=== PATIENT | female | born 1975 | race Caucasian/White ===

== ENCOUNTER 2016-06-07 16:49 | Inpatient (IN) | payer OTHER ==
[~2016-06-07] VITALS: Ht 172.7 cm; Wt 74.5 kg
--- NOTE | ~2016-06-07 | O ---
[place], [place] OPERATIVE NOTE NAME: [facility]IA [facility]ATORRE [facility] [id number] UNIT #: [id number] ROOM: 516 DOCTOR: KYREE LAMA MD BIRTHDATE: [birth year] DOS: GASTROENDOSCOPIC REPORT A 40-year-old who has presented with a chief complaint of hematemesis, red matters yesterday and at the time of admission and she continues with dyspepsia. PROCEDURE: Today's procedure part of investigation is panendoscopy plus biopsy plus photographic series. PREMEDICATION: Versed and Diprivan. SCOPE: Olympus forward-viewing gastroscope Q10 video. REPORT: After putting the patient in the left lateral position and after application of lubricant to the scope, the scope was introduced; thereafter, under direct visualization, advanced through the length of the esophagus without difficulty. Small hiatal hernia was noticed. Gastric pouch was approached, multiple antral erosion and multiple linear ulcers in the antrum were identified. Photographed and biopsied from margin of 1 was obtained. Duodenal bulb, second and third part within normal limits. The patient was gradually extubated, tolerated the procedure well. IMPRESSION: Multiple antral linear ulcers and multiple erosions, small hiatal hernia. PLAN: Soft diet, Protonix 40 mg daily. The patient advised to abstain from excessive alcohol intake that she is involved as well as recreational drugs and nicotine. KYREE LAMA MD CM:OPRECORD:OPERATIVE NOTE [id number] KYREE LAMA MD 06/09/16 1239 interface
--- NOTE | ~2016-06-07 | PR ---
[place], [place] PROGRESS NOTE [facility] [id number] UNIT #: [id number] ROOM: 516 DOCTOR: RANDY LÓPEZ MD BIRTHDATE: [birth year] DOS: 06/09/2016 REASON FOR VISIT: SVT. HISTORY OF PRESENT ILLNESS: The patient is feeling better. Denies any chest pain or palpitations. This morning she had a brief SVT, and she was slightly symptomatic. Denies any nausea, vomiting. She was scheduled to have upper endoscopy today due to her significant peptic ulcer disease. No chest pain, shortness of breath. No dizziness. No orthopnea, no PND, no edema. REVIEW OF SYSTEMS: Review of the 8 systems negative except as mentioned above. RHYTHM STRIPS: The patient is in sinus rhythm with one brief SVT this morning and sinus bradycardia at night. PHYSICAL EXAMINATION: VITAL SIGNS: Blood pressure 106/52, pulse 72, respiratory rate 16. GENERAL: Alert, comfortable, in no acute distress. NEUROLOGIC: The patient is alert, oriented, no acute distress. HEENT: Pupils are round and equal. No jaundice. Tongue was moist and pharynx was clear. NECK: Supple, no distended neck veins, no carotid bruit. CHEST: Symmetrical, nontender. LUNGS: Clear to auscultation bilaterally. HEART: Regular rhythm. No S3, S4. ABDOMEN: Benign, nontender. Bowel sounds normal. EXTREMITIES: Showed no edema. Distal pulses palpable. SKIN: Warm and dry. No cyanosis, no clubbing. PSYCHIATRIC: The patient is alert, oriented. No focal neurologic deficit. IMPRESSION: 1. Paroxysmal supraventricular tachycardia. 2. Peptic ulcer disease. 3. History of anxiety and depression. 4. Continue low dose beta blockers. She did have some sinus bradycardia at night time, but the day time, her heart felt better. RECOMMENDATIONS: 1. She is going for upper endoscopy today and if she is stable from that standpoint, she can be discharged home from the cardiac standpoint since she would like to attend her grandmother's tomorrow, and we will schedule outpatient stress test and 2D echo. 2. However, if she is to stay in the hospital today, then we will do stress test and 2D echo tomorrow and outpatient event monitor. 3. Again, she was advised to take her low-dose beta juan and watch her blood pressure and heart rate. If symptomatic and also if she develops tachycardia, she is advised to attempt vagal maneuvers as well as attempt to cough, also take additional metoprolol 25 mg. If the symptoms are persistent then she was advised to go to the Emergency Room. [place], [place] PROGRESS NOTE NAME: GLORIA DELATORRE UNIT #: [id number] ROOM: 516 DOCTOR: RANDY LÓPEZ MD BIRTHDATE: [birth year] RANDY LÓPEZ MD CM:CASSANDRA 1456 RANDY LÓPEZ MD 06/10/16 0102 interface
--- NOTE | ~2016-06-07 | CON ---
[place], [place] REPORT OF CONSULTATION NAME: GLORIA DELATORRE [facility] #: [id number] UNIT #: [id number] ROOM: 516 DOCTOR: KYREE LAMA MD BIRTHDATE: [birth year] DOS: 06/08/2016 HISTORY OF PRESENT ILLNESS: A 40-year-old patient, who has presented with multiple medical issues among which are abdominal epigastric pain, change in bowel habits, history of peptic ulcer disease and emesis of reddish matter. White blood cell at the time of admission was 13 and H and H of 15 and 44. Her lactic acid was 2.9 and INR 1.0. Comprehensive metabolic panel: BUN and creatinine were 15 and 1.3. Electrolytes were balanced. Liver function tests were normal. Beta-hCG was less than 10. Chest x-ray with clear lungs. CBC differential within normal limits. The patient has a habit of drinking a fifth of whiskey, at least it is during the weekend. She is an aggressive nicotine consumer as well. PAST MEDICAL HISTORY: Associated with chronic back pain, anxiety, alcohol and drug dependency, suicidal attempt and nicotine dependency. PAST SURGICAL HISTORY: Tubal ligation. SOCIAL HISTORY: As identified above. FAMILY HISTORY: Noncontributory. ALLERGIES: TO SULFA. MEDICATIONS LIST: Cyclobenzaprine, alprazolam and sertraline. REVIEW OF SYSTEMS: HEENT: Denies double vision or blurred vision. RESPIRATORY: Denies shortness of breath. CARDIOVASCULAR: Denies chest pain. DIGESTIVE SYSTEM: Hematemesis, blood in the stool and black stool. PHYSICAL EXAMINATION: GENERAL: Nontoxic patient. HEENT: Head is normocephalic, nontraumatic. Mouth and buccal mucosa are benign. NECK: Supple, no thyromegaly. CHEST: Symmetric anatomy, equal expansion. No wheeze and no rhonchi. HEART: Normal sinus rhythm. No gallop and no murmur. ABDOMEN: Soft. No hepato-organomegaly. Bowel sounds present. No pulsatile mass. EXTREMITIES: No cyanosis and no pedal edema. NEUROLOGIC: Alert and oriented to time, place and person. LABS: Reviewed. RECORDS: Reviewed. IMPRESSION: Gastrointestinal bleed, hematemesis and leukocytosis initially. No acute drop in hemoglobin and hematocrit. Patient with heavy history of alcohol [place], [place] REPORT OF CONSULTATION NAME: GLORIA DELATORRE UNIT #: [id number] ROOM: 516 DOCTOR: DAINA SANZ,KYREE BIRTHDATE: [birth year] and nicotine dependency, history of suicidal attempt and ideation in the past. Slight elevation of troponin at 0.069. PLAN AND DISCUSSION: This patient may end up needing anticoagulation and since she has aggressive history of peptic ulcer disease, black stool and hematemesis, may need anticoagulation based on her cardiac issues of tachycardia history. May benefit from endoscopic assessment to ensure there is no culprit to be contraindicated in anticoagulation. EGD tomorrow. KYREE LAMA MD CM:CONSTR:REPORT OF CONSULTATION 1627 06/09/16 0021 interface
--- NOTE | ~2016-06-07 | CON ---
[place], [place] REPORT OF CONSULTATION [id number] UNIT #: [id number] ROOM: 516 DOCTOR: RANDY LÓPEZ MD BIRTHDATE: [birth year] DOS: 06/08/2016 CARDIOLOGY CONSULT CONSULTING PHYSICIAN: Delon Lucia DO REASON FOR CONSULTATION: Tachycardia. HISTORY OF PRESENT ILLNESS: The patient is a 40-year-old patient with history of palpitation for the past 2-3 years, anxiety, who came to the Emergency Room with palpitations. As per her, these palpitations have been going on for about 7-8 days and no dizziness or syncope. In the Emergency Room, she is found to have a narrow complex tachycardia and she was given adenosine and was converted to sinus rhythm. Apparently, she has no cardiac medications at home and a couple of years ago, she did have a 24-hour Holter monitor which was unremarkable per her. She denies any chest pain, edema or syncope. No headaches. No tingling, numbness or weakness. No blurred vision, no double vision. No nausea, vomiting, diarrhea. Usually, she takes Xanax to help her heart rate, but the recent episode was not relieved with Xanax. REVIEW OF SYSTEMS: Review of the 8 systems negative except as mentioned above. PAST MEDICAL HISTORY: 1. History of paroxysmal supraventricular tachycardia, details unknown. 2. History of anxiety. 3. History of chronic back pain. 4. History of alcohol use. PAST SURGICAL HISTORY: History of tubal ligation. SOCIAL HISTORY: The patient has history of tobacco smoking and also alcohol use, but does not use illicit drugs. FAMILY HISTORY: Mother has hypertension. Father medical history is not known to the patient. ALLERGIES: The patient is allergic to SULFA. HOME MEDICATIONS: Xanax, sertraline and cyclobenzaprine. PHYSICAL EXAMINATION: VITAL SIGNS: Blood pressure 116/52, pulse 78, respiratory rate of 14. GENERAL: Alert, comfortable, in no acute distress. HEENT: Pupils are round and equal. No jaundice. Tongue was moist and pharynx was clear. NECK: Supple, no distended neck veins, no carotid bruit. Thyroid not palpable. CHEST: Symmetrical, nontender. LUNGS: Clear to auscultation bilaterally. HEART: Regular rhythm, no S3, no palpable thrills. ABDOMEN: Benign, nontender. Bowel sounds normal. [place], [place] REPORT OF CONSULTATION NAME: GLORIA DELATORRE UNIT #: [id number] ROOM: 516 DOCTOR: MARIBEL SANZ,RANDY BIRTHDATE: [birth year] EXTREMITIES: Showed no edema. Distal pulses are palpable. SKIN: Warm and dry. No cyanosis, no clubbing. NEUROLOGIC: The patient is alert, oriented. No focal neurologic deficit. RECTAL: Deferred. GENITOURINARY: Deferred. MUSCULOSKELETAL: No joint tenderness or swelling. REVIEW OF THE DIAGNOSTIC TESTS: No ____ EKG was found. Rhythm strips showed currently in sinus rhythm and in the Emergency Room, she was noted to have a narrow complex ventricular tachycardia, rates around 200 and converted to sinus rhythm with adenosine. Her CBC, chemistry, labs reviewed. Her cardiac troponins are 0.10, the current one and the first was 0.02. Total CPK was 112 and MB was 0.8. IMPRESSION: 1. Supraventricular tachycardia, responded to adenosine with history of . 2. Borderline elevation of troponin due to tachyarrhythmias. The patient denies any chest pain and there are no ischemic changes on her rhythm strips. 3. Acute renal failure. 4. Tobacco use. 5. Alcohol use. 6. History of anxiety. RECOMMENDATIONS: 1. She denies any chest pain or palpitations. She is allowed to go home today or tomorrow due to her grandmother's . 2. I would recommend exercise treadmill stress test as well as 2D echo and since this test cannot be done during the weekend, the earliest we can do this test should be Friday. Also, I would recommend outpatient event monitor. If she stays in the hospital, we will get the stress test and 2D echo Friday. If she is discharged today or tomorrow, then we will schedule this test as outpatient and I will start low dose beta blockers, metoprolol 25 mg once daily and also as needed if she becomes tachycardic at home. 3. She was advised to check her blood pressure if she gets dizzy and lightheaded, and especially can be discharged home from the cardiac standpoint during the weekend due to her request and we will schedule the above recommendations as outpatient. 4. The patient does not consume any caffeinated beverages and again this was discussed to avoid caffeinated beverages and also the patient advised to quit smoking and drinking. [place], [place] REPORT OF CONSULTATION NAME: GLORIA DELATORRE UNIT #: [id number] ROOM: [facility] DOCTOR: MARIBEL SANZ,RANDY BIRTHDATE: [birth year] RANDY LÓPEZ MD CM:CONSTR:REPORT OF CONSULTATION 1613 06/10/16 1448 interface
[~2016-06-07 16:49] MED LIST: AMOXIL500 MG PO; BRIN10TA PO; CEFUROXIME AXE250 MG PO; CELEXA10 MG PO; CIPRO500 MG PO; CYCLOBENZAPRINE10 MG PO; DEXILANT30 MG PO; DIFLUCAN150 MG PO; NITROFURANTOIN100 M9 PO; PREDNISONE20 MG PO; ROBITUSSIN AC 110 ML PO; SERTRALINE HYDR50 MG PO; XANAX0.5 MG PO; ZOLOFT50 MG PO; ZYRTEC10 MG PO
[2016-06-07 17:18] LABS: BASO # 0.1 10*3/uL (0.0-0.1); BASO % 0.5 % (0.0-1.0); EOS % 0.3 % (1.0-4.0); HEMATOCRIT 44.8 % (37.0-47.0); HEMOGLOBIN 15.3 g/dl (12.0-16.0); LYMPH # 2.5 10*3/uL (1.3-4.4); LYMPH % 19.2 % (27.0-41.0); MEAN CELL VOLUME 88.5 fl (81.0-99.0); MEAN CORPUSCULAR HGB 30.2 pg (27.0-31.0); MEAN CORPUSCULAR HGB CONC 34.2 g/dl (33.0-37.0); MEAN PLATELET VOLUME 10.4 fl (9.6-12.3); MONO % 7.9 % (3.0-9.0); NEUT # 9.3 10*3/uL (2.3-7.9); NEUT % 71.8 % (47.0-73.0); PLATELET COUNT AUTOMATED 265 10*3/uL (130-400); RED BLOOD COUNT 5.06 10*6/uL (4.10-5.10); RED CELL DISTRI WIDTH 13.2 % (0-14.5)
[2016-06-07 17:27] LABS: PROTHROMBIN TIME 10.4 SECONDS (9.0-12.4)
[2016-06-07 17:36] LABS: ALBUMIN 3.9 gm/dl (3.1-4.5); ALKALINE PHOSPHATASE 75 U/L (45-117); BILIRUBIN, TOTAL 0.8 mg/dl (0.2-1.0); BUN 15 mg/dl (7-24); CARBON DIOXIDE 20 mmol/L (21-32); CHLORIDE 105 mmol/L (98-107); CKMB 0.8 ng/ml (0.5-3.6); CPK 112 U/L (26-192); EST GLOM FILT AFRICAN AMERICAN 51 ml/min; GLUCOSE 146 mg/dL (65-99); MAGNESIUM 1.7 mg/dL (1.5-2.1); POTASSIUM 4.1 mmol/L (3.5-5.1); SGOT/AST 21 IU/L (3-35); SGPT/ALT 19 U/L (12-78); SODIUM 138 mmol/L (136-145); TOTAL PROTEIN 7.9 gm/dL (6.4-8.2); TROPONIN I 0.022 ng/ml (<0.045)
[2016-06-07 17:38] LABS: C-REACTIVE PROTEIN < 0.29 MG/DL (0-0.3)
[2016-06-07 19:15] LABS: LA>2 REFLEX 2 HR DRAW NOW
[2016-06-07] MEDS ORDERED: SERTRALINE HYD100 MG PO (20:33)
[2016-06-08 06:34] LABS: BASO % 0.3 % (0.0-1.0); EOS # 0.1 10*3/uL (0.0-0.4); EOS % 1.4 % (1.0-4.0); LYMPH % 35.3 % (27.0-41.0); MEAN CELL VOLUME 88.7 fl (81.0-99.0); MEAN CORPUSCULAR HGB CONC 33.9 g/dl (33.0-37.0); MEAN PLATELET VOLUME 10.4 fl (9.6-12.3); MONO # 0.6 10*3/uL (0.1-1.0); MONO % 11.2 % (3.0-9.0); NEUT % 51.6 % (47.0-73.0); RED BLOOD COUNT 4.16 10*6/uL (4.10-5.10); WHITE BLOOD COUNT 5.7 10*3/uL (4.8-10.8)
[2016-06-08 06:39] LABS: HEMATOCRIT 36.9 % (37.0-47.0); HEMOGLOBIN 12.5 g/dl (12.0-16.0); PLATELET COUNT AUTOMATED 179 10*3/uL (130-400)
[2016-06-08 06:55] LABS: HEMOGLOBIN A1c 4.9 % (4.8-5.6)
[2016-06-08 07:10] LABS: BUN 13 mg/dl (7-24); CARBON DIOXIDE 23 mmol/L (21-32); CHLORIDE 107 mmol/L (98-107); CHOLESTEROL 108 mg/dL (<200); EST GLOM FILT AFRICAN AMERICAN > 60 ml/min; GLUCOSE 87 mg/dL (65-99); HDL CHOLESTEROL 83 mg/dl (40-60); LDL CHOLESTEROL 9 mg/dL (9-159); MAGNESIUM 2.1 mg/dL (1.5-2.1); PHOSPHOROUS 3.1 mg/dL (2.5-4.9); POTASSIUM 3.5 mmol/L (3.5-5.1); SODIUM 140 mmol/L (136-145); TRIGLYCERIDES 81 mg/dl (<150); VLDL CHOLESTEROL 16 mg/dL (6-40)
[2016-06-08 07:34] LABS: VITAMIN D, 25-HYDROXY 11.9 ng/mL (30-100)
[2016-06-08 07:35] LABS: FOLIC ACID 5.67 ng/mL (>5.38)
[2016-06-09 06:16] LABS: BASO % 0.5 % (0.0-1.0); EOS # 0.1 10*3/uL (0.0-0.4); EOS % 1.5 % (1.0-4.0); HEMATOCRIT 39.4 % (37.0-47.0); HEMOGLOBIN 13.4 g/dl (12.0-16.0); LYMPH # 2.3 10*3/uL (1.3-4.4); LYMPH % 37.6 % (27.0-41.0); MEAN CELL VOLUME 88.5 fl (81.0-99.0); MEAN CORPUSCULAR HGB 30.1 pg (27.0-31.0); MEAN PLATELET VOLUME 10.4 fl (9.6-12.3); MONO # 0.5 10*3/uL (0.1-1.0); NEUT # 3.2 10*3/uL (2.3-7.9); NEUT % 52.2 % (47.0-73.0); PLATELET COUNT AUTOMATED 177 10*3/uL (130-400); RED BLOOD COUNT 4.45 10*6/uL (4.10-5.10); RED CELL DISTRI WIDTH 12.8 % (0-14.5); WHITE BLOOD COUNT 6.1 10*3/uL (4.8-10.8)
[2016-06-09] MEDS ORDERED: PROTONIX40 MG PO (11:53)
[2016-06-09] MEDS ORDERED: CARAFATE1 G1 PO (11:53)
[2016-06-09] MEDS ORDERED: B12100 MC1 PO (11:53)
[2016-06-09] MEDS ORDERED: D-1000 185 MG-11 TAB PO (11:53)
[2016-06-09] MEDS ORDERED: METOPROLOL SUCC25 M2 PO (11:53)
== END 2016-06-09 13:21 | disposition home or self-care (01) | DRG 377 ==
LOC: ED 16:49 → EDHOLD 18:37 → 5E 18:45
PROVIDERS: Emergency Medicine; Internal Medicine; Internal Medicine Hospice and Palliative Medicine
PROC: 0DB68ZX Excision of Stomach, Via Natural or Artificial Opening Endoscopic, Diagnostic (ICD-10-PCS; principal; 2016-06-09)
DX: K92.2 Gastrointestinal hemorrhage, unspecified (principal); N17.0 Acute kidney failure with tubular necrosis; I47.1 Supraventricular tachycardia; R65.10 Systemic inflammatory response syndrome (SIRS) of non-infectious origin without acute organ dysfunction; E87.2 Acidosis; K92.0 Hematemesis; K25.3 Acute gastric ulcer without hemorrhage or perforation; F10.10 Alcohol abuse, uncomplicated; F41.9 Anxiety disorder, unspecified; F17.210 Nicotine dependence, cigarettes, uncomplicated; F32.9 Major depressive disorder, single episode, unspecified; R06.82 Tachypnea, not elsewhere classified; D72.825 Bandemia; R73.9 Hyperglycemia, unspecified; K44.9 Diaphragmatic hernia without obstruction or gangrene; Z98.51 Tubal ligation status; Z82.49 Family history of ischemic heart disease and other diseases of the circulatory system; Z79.899 Other long term (current) drug therapy; Z71.6 Tobacco abuse counseling

== ENCOUNTER → 2016-06-26 | Outpatient (CLI) | payer OTHER ==
[~2016-06-26] MED LIST changes: +B12100 MC1 PO; +CARAFATE1 G1 PO; +CLARITIN10 MG PO; +D-1000 185 MG-11 TAB PO; +METOPROLOL SUCC25 M2 PO; +PROTONIX40 MG PO; +SERTRALINE HYD100 MG PO
== END | disposition home or self-care (01) ==
LOC: CARD 07:30
DX: I47.1 Supraventricular tachycardia (principal); I34.0 Nonrheumatic mitral (valve) insufficiency; I07.1 Rheumatic tricuspid insufficiency; R00.2 Palpitations; R94.31 Abnormal electrocardiogram [ECG] [EKG]

== ENCOUNTER 2016-08-16 21:51 | Inpatient (IN) | payer OTHER ==
[~2016-08-16] VITALS: Ht 172.7 cm; Wt 71.4 kg
--- NOTE | ~2016-08-16 | EKG ---
[place], [place] ELECTROCARDIOGRAM REPORT NAME: GLORIA DELATORRE UNIT #: [id number] ROOM: 403 DOCTOR: DIONNE FERRER MD BIRTHDATE: [birth year] DOS: TIME: 2222 hours. FINDINGS: 1. Normal sinus rhythm at 99 beats per minute. 2. The tracing is normal. 3. No previous tracing is available for comparison. DIONNE FERRER MD CM:EKGRPT:ELECTROCARDIOGRAM REPORT [id number] 1315 DIONNE FERRER MD
--- NOTE | ~2016-08-16 | CON ---
[place], [place] REPORT OF CONSULTATION [id number] UNIT #: [id number] ROOM: 403 DOCTOR: DIONNE FERRER MD BIRTHDATE: [birth year] DOS: 08/17/2016 HISTORY OF PRESENT ILLNESS: This is a 40-year-old -[place] woman who has had palpitation and supraventricular tachycardia that was documented during her last visit in this hospital when she was noted to have a heart rate of 200 beats per minute, intravenous adenosine actually restored normal sinus rhythm. She has an episode almost on a monthly basis, and it is accompanied by shortness of breath, chest tightness, lightheadedness, sometimes floaters in front of the eyes and also weakness and lethargy for many hours afterwards. These episodes started about 3 years ago and have not let up. She never passed out and nothing precipitates palpitations. She had a similar episode yesterday and by the time she came to the Emergency Department, symptoms had abated, and she was found to be in normal sinus rhythm. She is a very active lady who does not have any exertional chest pain, breathing difficulty, palpitations, orthopnea, or swelling of the lower extremities. PAST MEDICAL HISTORY: Anxiety, chronic back pain, depression and drug overdose, suicide attempt, but she does not use alcoholic beverages or any illicit drugs and does not smoke now. SURGICAL HISTORY: Includes tubal ligation. She has never had diabetes mellitus, essential hypertension, seizure disorder or stroke. MEDICATIONS: Metoprolol 25 mg daily once a day, alprazolam 0.5 mg p.r.n., cyclobenzaprine 10 mg at bedtime, sertraline 100 mg daily. PHYSICAL EXAMINATION: GENERAL: Reveals a patient who is a very pleasant, alert, and oriented. She is tall and slim her complexion is fine. There is no thyromegaly or finger clubbing. VITAL SIGNS: Pulse is irregular at 56 beats per minute, blood pressure 121/62. NECK: JVP is normal. AJR is negative. Carotid upstroke is normal. There is no carotid bruit. HEART: There is no cardiomegaly. No murmurs are present. There is no rub. Excellent pedal pulses and no edema in the lower extremities. LUNGS: She is not tachypneic. Lungs are clear to percussion and auscultation. ABDOMEN: Normal. LABORATORY DATA: An ECG done in the ER demonstrated normal sinus rhythm at 99 beats per minute and normal pattern. Labs are unremarkable. IMPRESSION: This patient has supraventricular tachycardia that is occurring frequently. Beta juan has not helped. Dr. Rios has already made arrangement for her to see Dr. Powers, an cannon crewmember to offer definitive treatment. From cardiac standpoint, she may be discharged home. [place], [place] REPORT OF CONSULTATION NAME: GLORIA DELATORRE UNIT #: [id number] ROOM: 403 DOCTOR: DIONNE FERRER MD BIRTHDATE: [birth year] I thank you for this consult. DIONNE FERRER MD CM:CONSTR:REPORT OF CONSULTATION 0813 08/18/16 0015 interface
[2016-08-16 21:57] VITALS: BP 147/80
[2016-08-16 22:35] LABS: BASO # 0.1 10*3/uL (0.0-0.1); BASO % 0.8 % (0.0-1.0); EOS # 0.1 10*3/uL (0.0-0.4); EOS % 1.4 % (1.0-4.0); HEMATOCRIT 42.1 % (37.0-47.0); HEMOGLOBIN 14.3 g/dl (12.0-16.0); LYMPH # 1.7 10*3/uL (1.3-4.4); LYMPH % 21.3 % (27.0-41.0); MEAN CELL VOLUME 89.4 fl (81.0-99.0); MEAN CORPUSCULAR HGB 30.4 pg (27.0-31.0); MEAN PLATELET VOLUME 9.7 fl (9.6-12.3); MONO # 0.7 10*3/uL (0.1-1.0); MONO % 8.9 % (3.0-9.0); NEUT # 5.3 10*3/uL (2.3-7.9); NEUT % 67.5 % (47.0-73.0); PLATELET COUNT AUTOMATED 253 10*3/uL (130-400); RED BLOOD COUNT 4.71 10*6/uL (4.10-5.10); RED CELL DISTRI WIDTH 13.4 % (0-14.5); WHITE BLOOD COUNT 7.9 10*3/uL (4.8-10.8)
[2016-08-16 22:45] LABS: PROTHROMBIN TIME 10.3 SECONDS (9.0-12.4)
[2016-08-16 22:54] LABS: BUN 15 mg/dl (7-24); CARBON DIOXIDE 24 mmol/L (21-32); CHLORIDE 103 mmol/L (98-107); CKMB 0.7 ng/ml (0.5-3.6); CPK 172 U/L (26-192); EST GLOM FILT AFRICAN AMERICAN > 60 ml/min; GLUCOSE 101 mg/dL (65-99); POTASSIUM 3.7 mmol/L (3.5-5.1); SODIUM 136 mmol/L (136-145)
[2016-08-16 22:56] LABS: TROPONIN I < 0.015 ng/ml (<0.045)
[2016-08-16 23:01] VITALS: BP 122/77
[2016-08-16 23:54] VITALS: BP 118/52
[2016-08-17] VITALS (10 sets, daily range): BP systolic 106–130; BP diastolic 42–74
[2016-08-17] MEDS ORDERED: ZOLOFT100 MG PO (02:53)
[2016-08-17] MEDS ORDERED: PRILOSEC20 M1 PO (02:54)
[2016-08-17 03:29] LABS: CPK 139 U/L (26-192); TROPONIN I < 0.015 ng/ml (<0.045)
[2016-08-17 06:28] LABS: CKMB 0.7 ng/ml (0.5-3.6); CPK 136 U/L (26-192)
[2016-08-17 06:32] LABS: TROPONIN I < 0.015 ng/ml (<0.045)
[2016-08-17 07:27] LABS: BASO % 0.5 % (0.0-1.0); EOS # 0.1 10*3/uL (0.0-0.4); EOS % 1.9 % (1.0-4.0); HEMATOCRIT 36.9 % (37.0-47.0); HEMOGLOBIN 12.6 g/dl (12.0-16.0); LYMPH # 1.8 10*3/uL (1.3-4.4); MEAN CELL VOLUME 90.7 fl (81.0-99.0); MEAN CORPUSCULAR HGB CONC 34.1 g/dl (33.0-37.0); MEAN PLATELET VOLUME 10.5 fl (9.6-12.3); MONO # 0.7 10*3/uL (0.1-1.0); MONO % 11.3 % (3.0-9.0); NEUT # 3.6 10*3/uL (2.3-7.9); NEUT % 57.1 % (47.0-73.0); PLATELET COUNT AUTOMATED 218 10*3/uL (130-400); RED BLOOD COUNT 4.07 10*6/uL (4.10-5.10); RED CELL DISTRI WIDTH 13.8 % (0-14.5); WHITE BLOOD COUNT 6.3 10*3/uL (4.8-10.8)
[2016-08-17 07:34] LABS: BUN 15 mg/dl (7-24); CARBON DIOXIDE 26 mmol/L (21-32); CHLORIDE 108 mmol/L (98-107); EST GLOM FILT AFRICAN AMERICAN > 60 ml/min; GLUCOSE 80 mg/dL (65-99); POTASSIUM 3.7 mmol/L (3.5-5.1); SODIUM 143 mmol/L (136-145)
[2016-08-17 08:58] LABS: CKMB 0.8 ng/ml (0.5-3.6); CPK 135 U/L (26-192)
[2016-08-17 09:03] LABS: TROPONIN I < 0.015 ng/ml (<0.045)
== END 2016-08-17 15:00 | disposition home or self-care (01) | DRG 206 ==
LOC: ED 21:51 → EDHOLD 08-17 01:39 → 4E 08-17 01:48
PROVIDERS: Family Medicine; Internal Medicine; Internal Medicine Hospice and Palliative Medicine
DX: M94.0 Chondrocostal junction syndrome [Tietze] (principal); I47.1 Supraventricular tachycardia; F32.9 Major depressive disorder, single episode, unspecified; F41.1 Generalized anxiety disorder; K21.9 Gastro-esophageal reflux disease without esophagitis; F17.210 Nicotine dependence, cigarettes, uncomplicated; J30.2 Other seasonal allergic rhinitis; G89.29 Other chronic pain; M54.9 Dorsalgia, unspecified; Z71.6 Tobacco abuse counseling; Z98.51 Tubal ligation status; Z79.899 Other long term (current) drug therapy; Z82.49 Family history of ischemic heart disease and other diseases of the circulatory system; Z88.2 Allergy status to sulfonamides; I49.9 Cardiac arrhythmia, unspecified

== ENCOUNTER 2016-12-12 21:33 | Inpatient (IN) | payer OTHER ==
[~2016-12-12] VITALS: Ht 165.1 cm; Wt 76.4 kg
--- NOTE | ~2016-12-12 | EKG ---
[place], [place] ELECTROCARDIOGRAM REPORT NAME: GLORIA DELATORRE UNIT #: [id number] ROOM: [facility] DOCTOR: DIONNE FERRER MD BIRTHDATE: [birth year] DOS: 12/13/2016 TIME: 2157 hours. Atrial flutter with variable AV conduction. Ventricular rate is 144 beats per minute. Nonspecific T wave changes in chest leads. Abnormal ECG. No previous tracing is available for comparison. DIONNE FERRER MD CM:EKGRPT:ELECTROCARDIOGRAM REPORT [id number] 0929 DIONNE FERRER MD
--- NOTE | ~2016-12-12 | CON ---
[place], [place] REPORT OF CONSULTATION [id number] UNIT #: [id number] ROOM: 505 DOCTOR: DIONNE FERRER MD BIRTHDATE: [birth year] DOS: 12/13/2016 HISTORY OF PRESENT ILLNESS: The patient is a 41-year-old -[place] woman with history of atrial flutter. This has been present for many years now. Dr. Chi, an director of philanthropy, attempted to do radiofrequency ablation; however, according to patient, he was unable to trigger the flutter. She had been on flecainide 150 twice a day and this is to care of the palpitations and flutter; however, she developed bad headaches and now takes a lower dose. She was in this hospital in July with similar symptoms and also once earlier. She had an episode that started rather suddenly and she became dizzy and lightheaded. She did not pass out, in fact, she has never passed out with palpitations. She has not had any sweating, nausea or any breathing difficulty. She has no swelling of the lower extremities and generally does not have any exertional chest pain, breathing difficulty or orthopnea. She does not smoke nor does she drink alcoholic beverages. HOME MEDICATIONS: Include flecainide 150 mg half tablet daily, alprazolam 0.5 mg p.r.n. for anxiety, cyclobenzaprine 10 mg at night, loratadine 10 mg daily, sertraline 100 mg daily. PHYSICAL EXAMINATION: GENERAL: Reveals a tall, slim, healthy-looking young lady who is very comfortable. Her complexion is fine. She is not anemic, not jaundice. There is no thyromegaly or finger clubbing. Vital Signs: Pulse is regular at 76 beats per minute, blood pressure 115/68. NECK: Normal JVP. AJR is negative. There is no carotid bruit. HEART: There is no cardiomegaly. Auscultation does not reveal any murmurs or rubs and she has good pedal pulses. EXTREMITIES: There is no edema of the lower extremities. RESPIRATORY: She is not tachypneic. Lungs are clear to percussion and auscultation with excellent breath sounds. ABDOMEN: Normal bowel sounds. No bruit. There is no organomegaly or pulsatile mass. LABORATORY DATA: An ECG in the Emergency Department demonstrated classic flutter waves with 2:1 AV conduction producing a ventricular rate of 144 beats per minute and nonspecific T-wave changes. She had a stress test done here earlier this year, which showed no ischemia. IMPRESSION: This patient has recurrent atrial flutter and has never passed out, in the Emergency Department, adenosine failed and she was given atenolol intravenously to slow down the rate and eventually went to normal sinus rhythm. She is now in normal sinus rhythm, rate is pretty decent. RECOMMENDATIONS: She may be discharged home. I have asked her to take an extra 150 mg of flecainide once she develops palpitations and this may terminate the dysrhythmia. [place], [place] REPORT OF CONSULTATION NAME: GLORIA DELATORRE UNIT #: [id number] ROOM: [facility] DOCTOR: DIONNE FERRER MD BIRTHDATE: [birth year] No tests are required. I thank you for this consult. DIONNE FERRER MD CM:CONSTR:REPORT OF CONSULTATION 1440 12/16/16 0849 interface
[~2016-12-12 21:33] MED LIST changes: +PRILOSEC20 M1 PO; +ZOLOFT100 MG PO
[2016-12-12 22:14] VITALS: BP 140/85
[2016-12-12 22:14] LABS: BASO % 0.3 % (0.0-1.0); EOS % 0.4 % (1.0-4.0); HEMATOCRIT 43.1 % (37.0-47.0); HEMOGLOBIN 14.5 g/dl (12.0-16.0); LYMPH # 2.9 10*3/uL (1.3-4.4); MEAN CELL VOLUME 88.3 fl (81.0-99.0); MEAN CORPUSCULAR HGB 29.7 pg (27.0-31.0); MEAN CORPUSCULAR HGB CONC 33.6 g/dl (33.0-37.0); MEAN PLATELET VOLUME 10.2 fl (9.6-12.3); MONO # 0.5 10*3/uL (0.1-1.0); MONO % 5.2 % (3.0-9.0); NEUT # 5.8 10*3/uL (2.3-7.9); NEUT % 62.8 % (47.0-73.0); PLATELET COUNT AUTOMATED 242 10*3/uL (130-400); RED BLOOD COUNT 4.88 10*6/uL (4.10-5.10); WHITE BLOOD COUNT 9.2 10*3/uL (4.8-10.8)
--- NOTE | 2016-12-12 22:15 | NUR ---
6 MG ADENOCARD GIVEN, NO CHANGE IN HEART RATE/RHYTHM. 12 MG ADENOCARD GIVEN WITHOUT CHANGE. ORDERS FOR CARDIZEM TO BE PUT IN. PT STABLE.
[2016-12-12 22:26] LABS: ACT PARTIAL THROMBO TIME 25.6 SECONDS (20.8-31.5); INTERNATIONAL NORM RATIO 0.9 (2.0-3.5)
[2016-12-12 22:29] LABS: ALBUMIN 4.1 gm/dl (3.1-4.5); ALKALINE PHOSPHATASE 95 U/L (45-117); BUN 7 mg/dl (7-24); CHLORIDE 107 mmol/L (98-107); POTASSIUM 3.9 mmol/L (3.5-5.1); SGOT/AST 32 IU/L (3-35); SGPT/ALT 37 U/L (12-78); SODIUM 137 mmol/L (136-145); TOTAL PROTEIN 8.6 gm/dL (6.4-8.2)
[2016-12-12 22:30] LABS: TROPONIN I < 0.015 ng/ml (<0.045)
[2016-12-12 22:32] VITALS: BP 109/81
[2016-12-12 22:53] VITALS: BP 116/86
--- NOTE | 2016-12-12 22:53 | NUR ---
CARDIZEM DRIP INCREASED TO 10MG. PT REMAINS STABLE.
[2016-12-12 23:16] VITALS: BP 110/80
--- NOTE | 2016-12-12 23:18 | NUR ---
CARDIZEM INCREASED TO [address] FALK.
[2016-12-12 23:40] VITALS: BP 120/80
--- NOTE | 2016-12-12 23:48 | NUR ---
CARDIZEM DISCONTINUED. IV LOPRESSOR GIVEN.
[2016-12-12 23:52] VITALS: BP 112/65
[2016-12-13] VITALS (25 sets, daily range): BP systolic 86–115; BP diastolic 44–79
--- NOTE | 2016-12-13 02:12 | NUR ---
DR. LINK IN ER AND IS AWARE OF PATIENT'S BLOOD PRESSURE. WILL CONTINUE TO MONITOR. PATIENT HAS CALL LIGHT WITHIN REACH.
--- NOTE | 2016-12-13 03:01 | NUR ---
RESIDENT NOTIFIED THAT PATIENT'S HEART RATE CONVERTED TO NORMAL SINUS RHYTHM AT A RATE OF 70. PATIENT RESTING QUIETLY IN BED WITH EYES CLOSED. RESPIRATIONS EASY AND REGULAR. CALL LIGHT WITHIN REACH.
[2016-12-13 04:25] LABS: BASO % 0.3 % (0.0-1.0); EOS # 0.1 10*3/uL (0.0-0.4); EOS % 1.3 % (1.0-4.0); HEMATOCRIT 42.1 % (37.0-47.0); HEMOGLOBIN 14.2 g/dl (12.0-16.0); LYMPH # 3.4 10*3/uL (1.3-4.4); LYMPH % 35.5 % (27.0-41.0); MEAN CELL VOLUME 89.6 fl (81.0-99.0); MEAN CORPUSCULAR HGB 30.2 pg (27.0-31.0); MEAN CORPUSCULAR HGB CONC 33.7 g/dl (33.0-37.0); MONO # 0.5 10*3/uL (0.1-1.0); NEUT # 5.6 10*3/uL (2.3-7.9); NEUT % 57.7 % (47.0-73.0); PLATELET COUNT AUTOMATED 252 10*3/uL (130-400); WHITE BLOOD COUNT 9.6 10*3/uL (4.8-10.8)
[2016-12-13 04:36] LABS: BUN 10 mg/dl (7-24); CHLORIDE 106 mmol/L (98-107); CREATININE 0.91 mg/dL (0.55-1.02); POTASSIUM 3.9 mmol/L (3.5-5.1); SODIUM 139 mmol/L (136-145)
[2016-12-13 04:41] LABS: FREE T4 0.99 ng/dl (0.76-1.46); PHOSPHOROUS 3.6 mg/dL (2.5-4.9)
--- NOTE | 2016-12-13 05:13 | NUR ---
HEPARIN DRIP DECREASED BY 3UNITS/KG/HR BASED OFF HEPARIN PROTOCOL. HEPARIN DRIP ON HOLD FOR 1 HOUR PER POLICY. WILL CONTINUE TO MONITOR.
--- NOTE | 2016-12-13 07:08 | NUR ---
REPORT RECEIVED AT 0710 FROM RODRI LOPEZ. THIS PT IS SLEEPING,HER COLOR IS PINK.SKIN W/D,RESPIRATIONS ARE NON-LABORED. HEPARIN DRIP IS INFUSING,IV SITE APPEARS ASYMPTOMATIC. SHE WILL BE ADMITTED,WAITING FOR BED PLACEMENT. VS ARE STABLE AT THIS TIME. ROSA LOPEZ
--- NOTE | 2016-12-13 09:23 | NUR ---
PT IS AWAKE AND ALERT NOW. WILL BE ADMITTED,REPORT TO BE CALLED AT THIS TIME. PT HAS NO CO DISCOMFORT,NO DISTRESS NOTED. ROSA LOPEZ
--- NOTE | 2016-12-13 09:50 | NUR ---
A 41, admitted to , under the services of LLUVIA Maxwell DO with a diagnosis of AFLUTTER. Chief complaint is AFLUTTER. Patient arrived via bed from ER. Monitor applied. Initial assessment completed. Vital signs taken and recorded. LLUVIA MAXWELL DO notified of admission to the unit. Orders received. See assessment for past medical history, medications and allergies. Patient and/or family oriented to unit. [facility] EDU visitation policy reviewed. Clothing/patient valuable form completed. BRIANDA QUINONES
[2016-12-13] MEDS ORDERED: FLECAINIDE ACE150 M1 PO (10:02)
--- NOTE | 2016-12-13 11:04 | NUR ---
NOTIFIED OF CONSULT
--- NOTE | 2016-12-13 15:35 | NUR ---
IN TO SEE PT, PER PT CAN BE DISCHARGED HOME ON HIS STANDPOINT
[2016-12-13] MEDS ORDERED: VITAMIN D-32000 UNIT PO (17:15)
--- NOTE | 2016-12-13 17:46 | NUR ---
Discharge instructions reviewed with patient/family. Patient receptive and verbalizes understanding. Follow-up care arranged. Written instructions given to patient/family. BRIANDA QUINONES
== END 2016-12-13 17:46 | disposition home or self-care (01) | DRG 310 ==
LOC: ED 21:33 → 5E 12-13 00:03 → EDHOLD 12-13 00:03 → 5E 12-13 09:14
PROVIDERS: Internal Medicine; Student in an Organized Health Care Education/Training Program; ADMIT Internal Medicine
DX: I48.92 Unspecified atrial flutter (principal); E83.51 Hypocalcemia; F17.210 Nicotine dependence, cigarettes, uncomplicated; I49.3 Ventricular premature depolarization; F41.1 Generalized anxiety disorder; K21.9 Gastro-esophageal reflux disease without esophagitis; F32.9 Major depressive disorder, single episode, unspecified; M54.5 Low back pain; G89.29 Other chronic pain; I47.1 Supraventricular tachycardia; Z98.51 Tubal ligation status; Z82.49 Family history of ischemic heart disease and other diseases of the circulatory system; Z88.2 Allergy status to sulfonamides; Z79.899 Other long term (current) drug therapy

== ENCOUNTER 2017-02-20 18:04 | Emergency (ER) | payer OTHER ==
[~2017-02-20] VITALS: Ht 172.7 cm; Wt 72.6 kg
[~2017-02-20 18:04] MED LIST changes: +FLECAINIDE ACE150 M1 PO; +VITAMIN D-32000 UNIT PO
[2017-02-20] MEDS ORDERED: NAPROSYN500 MG PO (18:44)
[2017-02-20] MEDS ORDERED: CLINDAMYCIN HC300 MG PO (18:44)
== END 2017-02-20 18:49 | disposition home or self-care (01) ==
LOC: ED 18:04
DX: K02.9 Dental caries, unspecified (principal); F41.9 Anxiety disorder, unspecified; G89.29 Other chronic pain; K21.9 Gastro-esophageal reflux disease without esophagitis; F32.9 Major depressive disorder, single episode, unspecified; F17.210 Nicotine dependence, cigarettes, uncomplicated; F10.10 Alcohol abuse, uncomplicated; Z88.2 Allergy status to sulfonamides; Z98.51 Tubal ligation status; Z79.899 Other long term (current) drug therapy

== ENCOUNTER 2017-05-23 12:00 | Emergency (ER) | payer OTHER ==
[~2017-05-23] VITALS: Ht 172.7 cm; Wt 72.6 kg
[~2017-05-23 12:00] MED LIST changes: +CLINDAMYCIN HC300 MG PO; +NAPROSYN500 MG PO
[2017-05-23] MEDS ORDERED: NAPROSYN500 MG PO (12:26)
== END 2017-05-23 13:57 | disposition home or self-care (01) ==
LOC: ED 12:00
DX: R07.81 Pleurodynia (principal); R03.0 Elevated blood-pressure reading, without diagnosis of hypertension; F17.200 Nicotine dependence, unspecified, uncomplicated; I48.92 Unspecified atrial flutter; G89.29 Other chronic pain; K21.9 Gastro-esophageal reflux disease without esophagitis; Z79.899 Other long term (current) drug therapy; Z98.51 Tubal ligation status; Z88.2 Allergy status to sulfonamides; X50.1XXA Overexertion from prolonged static or awkward postures, initial encounter; Y93.89 Activity, other specified; Y92.89 Other specified places as the place of occurrence of the external cause; Y99.9 Unspecified external cause status

== ENCOUNTER 2017-07-28 16:14 | Emergency (ER) | payer OTHER ==
[~2017-07-28] VITALS: Ht 172.7 cm; Wt 72.6 kg
[2017-07-28] MEDS ORDERED: ANAPROX DS550 MG PO (18:09)
== END 2017-07-28 18:53 | disposition home or self-care (01) ==
LOC: ED 16:14
DX: S92.511A Displaced fracture of proximal phalanx of right lesser toe(s), initial encounter for closed fracture (principal); F17.200 Nicotine dependence, unspecified, uncomplicated; Z98.51 Tubal ligation status; Z88.2 Allergy status to sulfonamides; Z79.899 Other long term (current) drug therapy; W17.2XXA Fall into hole, initial encounter; Y93.89 Activity, other specified; Y92.89 Other specified places as the place of occurrence of the external cause; Y99.9 Unspecified external cause status

== ENCOUNTER 2019-04-02 17:26 | Emergency (ER) | payer OTHER ==
[~2019-04-02] VITALS: Ht 172.7 cm; Wt 68.0 kg
[~2019-04-02 17:26] MED LIST changes: +ANAPROX DS550 MG PO
[2019-04-02] MEDS ORDERED: IBUPROFEN600 MG PO (19:50)
[2019-04-02] MEDS ORDERED: TESSALON PERLE100 M1 PO (19:50)
== END 2019-04-02 20:00 | disposition home or self-care (01) ==
LOC: ED 17:26
DX: B34.9 Viral infection, unspecified (principal); G89.29 Other chronic pain; F17.200 Nicotine dependence, unspecified, uncomplicated; Z88.2 Allergy status to sulfonamides; Z79.899 Other long term (current) drug therapy

== ENCOUNTER 2019-04-18 15:28 | Emergency (ER) | payer OTHER ==
[~2019-04-18] VITALS: Ht 172.7 cm; Wt 68.0 kg
[~2019-04-18 15:28] MED LIST changes: +IBUPROFEN600 MG PO; +TESSALON PERLE100 M1 PO
[2019-04-18 16:22] LABS: BASO % 0.4 % (0.0-1.0); EOS # 0.2 10*3/uL (0.0-0.4); EOS % 2.4 % (1.0-4.0); HEMATOCRIT 37.5 % (37.0-47.0); HEMOGLOBIN 12.3 g/dl (12.0-16.0); LYMPH # 1.5 10*3/uL (1.3-4.4); LYMPH % 18.4 % (27.0-41.0); MEAN CELL VOLUME 95.2 fl (81.0-99.0); MEAN CORPUSCULAR HGB 31.2 pg (27.0-31.0); MEAN CORPUSCULAR HGB CONC 32.8 g/dl (33.0-37.0); MEAN PLATELET VOLUME 10.4 fl (9.6-12.3); MONO # 0.5 10*3/uL (0.1-1.0); MONO % 5.8 % (3.0-9.0); NEUT # 5.8 10*3/uL (2.3-7.9); NEUT % 72.9 % (47.0-73.0); PLATELET COUNT AUTOMATED 188 10*3/uL (130-400); RED BLOOD COUNT 3.94 10*6/uL (4.10-5.10); RED CELL DISTRI WIDTH 12.8 % (0-14.5); WHITE BLOOD COUNT 7.9 10*3/uL (4.8-10.8)
[2019-04-18 17:19] LABS: ALBUMIN 3.6 gm/dl (3.1-4.5); ALKALINE PHOSPHATASE 79 U/L (45-117); BUN 18 mg/dl (7-24); CHLORIDE 106 mmol/L (98-107); CREATININE 1.02 mg/dL (0.55-1.02); POTASSIUM 4.8 mmol/L (3.5-5.1); SGOT/AST 29 IU/L (3-35); SGPT/ALT 25 U/L (12-78); SODIUM 136 mmol/L (136-145); TOTAL PROTEIN 7.3 gm/dL (6.4-8.2)
== END 2019-04-18 18:07 | disposition home or self-care (01) ==
LOC: ED 15:28
PROVIDERS: Nurse Practitioner Family
DX: S86.912A Strain of unspecified muscle(s) and tendon(s) at lower leg level, left leg, initial encounter (principal); F17.200 Nicotine dependence, unspecified, uncomplicated; Z88.2 Allergy status to sulfonamides; Z79.899 Other long term (current) drug therapy; X58.XXXA Exposure to other specified factors, initial encounter; Y93.89 Activity, other specified; Y92.89 Other specified places as the place of occurrence of the external cause; Y99.8 Other external cause status

== ENCOUNTER 2019-04-25 12:05 | Emergency (ER) | payer OTHER ==
[~2019-04-25] VITALS: Ht 172.7 cm; Wt 68.0 kg
[2019-04-25] MEDS ORDERED: NAPROSYN500 MG PO (12:26)
[2019-04-25] MEDS ORDERED: TYLENOL325 M1 PO (12:26)
== END 2019-04-25 12:25 | disposition home or self-care (01) ==
LOC: ED 12:05
DX: M25.462 Effusion, left knee (principal); M25.552 Pain in left hip; M25.572 Pain in left ankle and joints of left foot; K21.9 Gastro-esophageal reflux disease without esophagitis; G89.29 Other chronic pain; F17.200 Nicotine dependence, unspecified, uncomplicated; Z88.2 Allergy status to sulfonamides; Z79.899 Other long term (current) drug therapy

== ENCOUNTER 2019-09-24 17:51 | Inpatient (IN) | payer OTHER ==
[~2019-09-24] VITALS: Ht 172.7 cm; Wt 72.6 kg
[~2019-09-24 17:51] MED LIST changes: +TYLENOL325 M1 PO
[2019-09-24 18:01] VITALS: BP 146/81
[2019-09-24 18:18] LABS: BASO # 0.1 10*3/uL (0.0-0.1); BASO % 0.8 % (0.0-1.0); EOS # 0.1 10*3/uL (0.0-0.4); EOS % 2.3 % (1.0-4.0); HEMATOCRIT 41.9 % (37.0-47.0); LYMPH % 32.8 % (27.0-41.0); MEAN CELL VOLUME 90.5 fl (81.0-99.0); MEAN CORPUSCULAR HGB 30.7 pg (27.0-31.0); MEAN CORPUSCULAR HGB CONC 33.9 g/dl (33.0-37.0); MEAN PLATELET VOLUME 8.9 fl (9.6-12.3); MONO # 0.5 10*3/uL (0.1-1.0); MONO % 7.5 % (3.0-9.0); NEUT # 3.4 10*3/uL (2.3-7.9); NEUT % 56.3 % (47.0-73.0); PLATELET COUNT AUTOMATED 257 10*3/uL (130-400); RED BLOOD COUNT 4.63 10*6/uL (4.10-5.10); RED CELL DISTRI WIDTH 13.1 % (0-14.5); WHITE BLOOD COUNT 6.1 10*3/uL (4.8-10.8)
[2019-09-24 18:28] LABS: ACT PARTIAL THROMBO TIME 30.8 SECONDS (20.0-32.1); INTERNATIONAL NORM RATIO 0.9 (2.0-3.5)
[2019-09-24 18:34] LABS: URINE AMPHETAMINES < 1000 (1000ng/ml); URINE BARBITURATES < 200 (200ng/ml); URINE BENZODIAZEPINES < 200 (200ng/ml); URINE CANNABINOIDS (THC) < 50 (50ng/ml); URINE COCAINE < 300 (300ng/ml); URINE METHADONE < 300 (300ng/ml); URINE OPIATES < 300 (300ng/ml)
[2019-09-24 18:35] LABS: ALBUMIN 3.5 gm/dl (3.1-4.5); ALKALINE PHOSPHATASE 86 U/L (45-117); BUN 8 mg/dl (7-24); CHLORIDE 110 mmol/L (98-107); CREATININE 0.86 mg/dL (0.55-1.02); LIPASE 230 U/L (73-393); POTASSIUM 3.8 mmol/L (3.5-5.1); SGOT/AST 21 IU/L (3-35); SGPT/ALT 17 U/L (12-78); SODIUM 137 mmol/L (136-145); TOTAL PROTEIN 7.7 gm/dL (6.4-8.2)
[2019-09-24 18:36] LABS: URINE PHENCYCLIDINE < 25 (25ng/ml)
[2019-09-24 18:37] LABS: BILIRUBIN NEGATIVE (NEGATIVE); BLOOD NEGATIVE (NEGATIVE); CLARITY CLEAR (CLEAR); COLOR YELLOW (YELLOW); GLUCOSE NEGATIVE (NEGATIVE); KETONE NEGATIVE (NEGATIVE); LEUKO ESTERASE NEGATIVE (NEGATIVE); NITRITE NEGATIVE (NEGATIVE); RBC 0-2 rbc/hpf (0-2); SPECIFIC GRAVITY 1.005 (1.005-1.030); UROBILINOGEN 0.2 E.U./dl (0.2-1.0)
[2019-09-24 18:38] LABS: BACTERIA 1+; EPITHELIAL CELLS 31-40; WBC 0-2 wbc/hpf (0-5)
[2019-09-24 18:39] LABS: ACETAMINOPHEN (TYLENOL) < 5.0 ug/ml (10-30); BETA-HCG, QUANT < 1.0 mIU/mL (1-3); TROPONIN I < 0.015 ng/ml (<0.045)
[2019-09-24 18:41] VITALS: BP 115/68
[2019-09-25 01:13] VITALS: BP 122/75
[2019-09-25 06:27] LABS: BASO % 0.4 % (0.0-1.0); EOS # 0.1 10*3/uL (0.0-0.4); EOS % 1.6 % (1.0-4.0); HEMATOCRIT 38.6 % (37.0-47.0); LYMPH # 1.6 10*3/uL (1.3-4.4); MEAN CELL VOLUME 91.5 fl (81.0-99.0); MEAN CORPUSCULAR HGB 30.6 pg (27.0-31.0); MEAN CORPUSCULAR HGB CONC 33.4 g/dl (33.0-37.0); MEAN PLATELET VOLUME 9.5 fl (9.6-12.3); MONO # 0.7 10*3/uL (0.1-1.0); MONO % 9.5 % (3.0-9.0); NEUT # 5.1 10*3/uL (2.3-7.9); NEUT % 67.4 % (47.0-73.0); PLATELET COUNT AUTOMATED 239 10*3/uL (130-400); RED BLOOD COUNT 4.22 10*6/uL (4.10-5.10); RED CELL DISTRI WIDTH 13.2 % (0-14.5); WHITE BLOOD COUNT 7.6 10*3/uL (4.8-10.8)
[2019-09-25 07:01] LABS: ALBUMIN 3.2 gm/dl (3.1-4.5); BUN 14 mg/dl (7-24); CHLORIDE 110 mmol/L (98-107); CHOLESTEROL 139 mg/dL (<200); CREATININE 1.01 mg/dL (0.55-1.02); POTASSIUM 4.2 mmol/L (3.5-5.1); SGOT/AST 18 IU/L (3-35); SGPT/ALT 15 U/L (12-78); SODIUM 138 mmol/L (136-145); TOTAL PROTEIN 6.9 gm/dL (6.4-8.2); TRIGLYCERIDES 135 mg/dl (<150); VLDL CHOLESTEROL 27 mg/dL (6-40)
[2019-09-25 07:08] LABS: ALKALINE PHOSPHATASE 72 U/L (45-117); FREE T4 1.15 ng/dl (0.76-1.46); HDL CHOLESTEROL 86 mg/dl (40-60); LDL CHOLESTEROL 26 mg/dL (9-159)
[2019-09-25 07:10] LABS: VITAMIN D, 25-HYDROXY 35.8 ng/mL (30-100)
== END 2019-09-25 11:34 | disposition home or self-care (01) | DRG 918 ==
LOC: ED 17:51 → EDHOLD 18:55
PROVIDERS: Emergency Medicine; Student in an Organized Health Care Education/Training Program; ADMIT Internal Medicine
DX: T42.4X2A Poisoning by benzodiazepines, intentional self-harm, initial encounter (principal); I47.1 Supraventricular tachycardia; I48.92 Unspecified atrial flutter; E44.0 Moderate protein-calorie malnutrition; F10.929 Alcohol use, unspecified with intoxication, unspecified; Y90.8 Blood alcohol level of 240 mg/100 ml or more; F31.9 Bipolar disorder, unspecified; G89.29 Other chronic pain; M54.9 Dorsalgia, unspecified; K21.9 Gastro-esophageal reflux disease without esophagitis; F41.1 Generalized anxiety disorder; F17.210 Nicotine dependence, cigarettes, uncomplicated; E87.8 Other disorders of electrolyte and fluid balance, not elsewhere classified; R73.9 Hyperglycemia, unspecified; J30.2 Other seasonal allergic rhinitis; E55.9 Vitamin D deficiency, unspecified; Z98.51 Tubal ligation status; Z88.2 Allergy status to sulfonamides; Z79.899 Other long term (current) drug therapy; Y92.89 Other specified places as the place of occurrence of the external cause; Z82.49 Family history of ischemic heart disease and other diseases of the circulatory system; Z88.1 Allergy status to other antibiotic agents; Z88.5 Allergy status to narcotic agent; T14.91XA Suicide attempt, initial encounter

== ENCOUNTER 2020-11-17 12:22 | Inpatient (IN) | payer OTHER ==
[~2020-11-17] VITALS: Ht 172.7 cm; Wt 70.3 kg
[2020-11-17 12:26] VITALS: BP 123/62
[2020-11-17 13:09] LABS: BASO % 0.6 % (0.0-1.0); EOS # 0.2 10*3/uL (0.0-0.4); EOS % 2.7 % (1.0-4.0); HEMATOCRIT 43.4 % (37.0-47.0); LYMPH # 1.7 10*3/uL (1.3-4.4); LYMPH % 25.3 % (27.0-41.0); MEAN CELL VOLUME 88.8 fl (81.0-99.0); MEAN CORPUSCULAR HGB 29.7 pg (27.0-31.0); MEAN CORPUSCULAR HGB CONC 33.4 g/dl (33.0-37.0); MEAN PLATELET VOLUME 11.1 fl (9.6-12.3); MONO # 0.4 10*3/uL (0.1-1.0); MONO % 5.2 % (3.0-9.0); NEUT # 4.4 10*3/uL (2.3-7.9); NEUT % 66.1 % (47.0-73.0); PLATELET COUNT AUTOMATED 267 10*3/uL (130-400); RED BLOOD COUNT 4.89 10*6/uL (4.10-5.10); RED CELL DISTRI WIDTH 11.9 % (0-14.5); WHITE BLOOD COUNT 6.7 10*3/uL (4.8-10.8)
[2020-11-17 13:17] LABS: BILIRUBIN Negative (Negative); BLOOD 2+ (Negative); CLARITY Cloudy (Clear); COLOR Yellow (Yellow); GLUCOSE Negative (Negative); KETONE 3+ (Negative); LEUKO ESTERASE 2+ (Negative); NITRITE Negative (Negative)
[2020-11-17 13:26] LABS: BACTERIA 3+; WBC 16-20 wbc/hpf (0-5)
[2020-11-17 13:27] LABS: URINE AMPHETAMINES < 1000 (1000ng/ml); URINE BARBITURATES < 200 (200ng/ml); URINE BENZODIAZEPINES < 200 (200ng/ml); URINE CANNABINOIDS (THC) < 50 (50ng/ml); URINE COCAINE < 300 (300ng/ml); URINE METHADONE < 300 (300ng/ml); URINE OPIATES < 300 (300ng/ml); URINE PHENCYCLIDINE < 25 (25ng/ml)
[2020-11-17 13:28] LABS: ALBUMIN 3.7 gm/dl (3.1-4.5); ALKALINE PHOSPHATASE 78 U/L (45-117); BUN 12 mg/dl (7-24); CHLORIDE 105 mmol/L (98-107); CREATININE 0.87 mg/dL (0.55-1.02); POTASSIUM 3.8 mmol/L (3.5-5.1); SGOT/AST 11 IU/L (3-35); SGPT/ALT 21 U/L (12-78); SODIUM 137 mmol/L (136-145); TOTAL PROTEIN 7.5 gm/dL (6.4-8.2)
[2020-11-17 13:30] LABS: ETHYL ALCOHOL < 3.0 mg/dl (<3)
[2020-11-17 13:31] LABS: BETA-HCG, QUANT < 1.0 mIU/mL (1-3)
[2020-11-17] MEDS ORDERED: METOPROLOL SUCC25 M2 PO (13:54)
[2020-11-17] MEDS ORDERED: BUSPIRONE HCL10 MG PO (15:11)
[2020-11-17 16:00] VITALS: BP 109/48
[2020-11-17 20:00] VITALS: BP 113/47
[2020-11-18] VITALS: BP 105/43
[2020-11-18 08:00] VITALS: BP 108/40
[2020-11-18 12:00] VITALS: BP 100/51
[2020-11-18 16:00] VITALS: BP 110/62
[2020-11-18 20:00] VITALS: BP 111/51
[2020-11-19] VITALS: BP 111/48
[2020-11-19 08:00] VITALS: BP 123/51
[2020-11-19 12:00] VITALS: BP 108/44
[2020-11-19 16:00] VITALS: BP 92/50
[2020-11-19 20:00] VITALS: BP 100/43
[2020-11-20] VITALS: BP 100/38
[2020-11-20 08:00] VITALS: BP 100/38; BP 105/50
[2020-11-20] MEDS ORDERED: ZOFRAN4 MG PO (11:22)
== END 2020-11-20 13:18 | disposition home or self-care (01) | DRG 897 ==
LOC: ED 12:22 → 5E 13:38 → EDHOLD 13:38 → 5E 14:34
PROVIDERS: Student in an Organized Health Care Education/Training Program; ADMIT Family Medicine; ATTEND Family Medicine
DX: F11.23 Opioid dependence with withdrawal (principal); I47.1 Supraventricular tachycardia; N30.00 Acute cystitis without hematuria; F32.9 Major depressive disorder, single episode, unspecified; F17.210 Nicotine dependence, cigarettes, uncomplicated; Z88.2 Allergy status to sulfonamides; Z88.5 Allergy status to narcotic agent; F41.9 Anxiety disorder, unspecified; Z71.6 Tobacco abuse counseling

== ENCOUNTER 2020-12-01 03:09 | Emergency (ER) | payer OTHER ==
[~2020-12-01] VITALS: Ht 172.7 cm; Wt 63.5 kg
[~2020-12-01 03:09] MED LIST changes: +BUSPIRONE HCL10 MG PO; +ZOFRAN4 MG PO
[2020-12-01 04:13] LABS: BASO % 0.5 % (0.0-1.0); EOS # 0.2 10*3/uL (0.0-0.4); EOS % 2.1 % (1.0-4.0); HEMATOCRIT 40.6 % (37.0-47.0); LYMPH # 1.8 10*3/uL (1.3-4.4); LYMPH % 22.7 % (27.0-41.0); MEAN CELL VOLUME 89.2 fl (81.0-99.0); MEAN CORPUSCULAR HGB 29.5 pg (27.0-31.0); MEAN PLATELET VOLUME 10.3 fl (9.6-12.3); MONO # 0.5 10*3/uL (0.1-1.0); MONO % 5.9 % (3.0-9.0); NEUT # 5.3 10*3/uL (2.3-7.9); NEUT % 68.4 % (47.0-73.0); PLATELET COUNT AUTOMATED 268 10*3/uL (130-400); RED BLOOD COUNT 4.55 10*6/uL (4.10-5.10); RED CELL DISTRI WIDTH 12.3 % (0-14.5); WHITE BLOOD COUNT 7.8 10*3/uL (4.8-10.8)
[2020-12-01 04:24] LABS: ALBUMIN 3.9 gm/dl (3.1-4.5); ALKALINE PHOSPHATASE 73 U/L (45-117); BUN 14 mg/dl (7-24); CHLORIDE 106 mmol/L (98-107); CREATININE 0.79 mg/dL (0.55-1.02); LIPASE 132 U/L (73-393); POTASSIUM 3.5 mmol/L (3.5-5.1); SGOT/AST 11 IU/L (3-35); SGPT/ALT 21 U/L (12-78); SODIUM 137 mmol/L (136-145); TOTAL PROTEIN 7.6 gm/dL (6.4-8.2)
== END 2020-12-01 07:00 | disposition home or self-care (01) ==
LOC: ED 03:09
PROVIDERS: Emergency Medicine
DX: K52.9 Noninfective gastroenteritis and colitis, unspecified (principal); K59.00 Constipation, unspecified; K21.9 Gastro-esophageal reflux disease without esophagitis; F17.200 Nicotine dependence, unspecified, uncomplicated; Z88.2 Allergy status to sulfonamides; Z88.6 Allergy status to analgesic agent; Z79.899 Other long term (current) drug therapy

== ENCOUNTER 2024-04-26 11:26 | Emergency (ER) | payer OTHER ==
[~2024-04-26] VITALS: Ht 172.7 cm; Wt 84.8 kg
[2024-04-26] MEDS ORDERED: Ondansetron Hydrochloride 4 MG/2 ML VIAL IV ONE (12:25)
[2024-04-26] MEDS ORDERED: Acetaminophen/Oxycodone 5 MG/325 MG TABLET PO ONE (12:25)
[2024-04-26] MEDS ORDERED: SODIUM CHLORIDE 0.9% 1,000 ML IV ONE (12:25)
[2024-04-26 13:04] LABS: BASO % 0.4 % (0.0-1.0); EOS # 0.1 10*3/uL (0.0-0.4); EOS % 2.3 % (1.0-4.0); HEMATOCRIT 45.4 % (37.0-47.0); MEAN CELL VOLUME 88.2 fl (81.0-99.0); MEAN CORPUSCULAR HGB 29.1 pg (27.0-31.0); MEAN PLATELET VOLUME 10.8 fl (9.6-12.3); MONO # 0.6 10*3/uL (0.1-1.0); MONO % 11.5 % (3.0-9.0); NEUT # 3.3 10*3/uL (2.3-7.9); NEUT % 63.1 % (47.0-73.0); PLATELET COUNT AUTOMATED 210 10*3/uL (130-400); RED BLOOD COUNT 5.15 10*6/uL (4.10-5.10); RED CELL DISTRI WIDTH 13.1 % (0-14.5); WHITE BLOOD COUNT 5.2 10*3/uL (4.8-10.8)
[2024-04-26 13:24] LABS: ALKALINE PHOSPHATASE 81 U/L (46-116); BUN 12 mg/dl (9-23); CHLORIDE 103 mmol/L (98-107); POTASSIUM 3.8 mmol/L (3.4-5.1); SGPT/ALT 20 U/L (5-49); TOTAL PROTEIN 7.6 gm/dL (6.0-8.0)
[2024-04-26] MEDS ORDERED: TAMIFLU 75MG CA75 MG PO (14:17)
[2024-04-26] MEDS ORDERED: PREDNISONE20 M1 PO (14:17)
[2024-04-26] MEDS ORDERED: Phenergan25 MG PO (14:17)
[2024-04-26] MEDS ORDERED: Oseltamivir Phosphate 75 MG CAP PO ONE (14:20)
[2024-04-26] MEDS ORDERED: methylPREDNISolone sod succ 125 MG VIAL IV ONE (14:20)
== END 2024-04-26 15:00 | disposition home or self-care (01) ==
LOC: ED 11:26
PROVIDERS: Nurse Practitioner Family
DX: J10.1 Influenza due to other identified influenza virus with other respiratory manifestations (principal); Z20.822 Contact with and (suspected) exposure to COVID-19; R07.1 Chest pain on breathing; F41.9 Anxiety disorder, unspecified; F32.A Depression, unspecified; K21.9 Gastro-esophageal reflux disease without esophagitis; R11.2 Nausea with vomiting, unspecified; R19.7 Diarrhea, unspecified; E78.00 Pure hypercholesterolemia, unspecified; I48.91 Unspecified atrial fibrillation; F17.200 Nicotine dependence, unspecified, uncomplicated; Z98.51 Tubal ligation status; Z88.2 Allergy status to sulfonamides; Z88.5 Allergy status to narcotic agent